=== PATIENT | female | born 1950 | race Caucasian/White ===

== ENCOUNTER 2019-08-19 12:12 | Inpatient (IN) | payer MEDICARE, OTHER, SELFPAY ==
[2019-08-16 14:21] VITALS: BMI 34.7
--- NOTE | 2019-08-16 16:03 | SUR.PREOP ---
Spoke with Raheel Parham PT and stated he would relay to Suhail VERGARA to be here MondayAugust 18 at 0645 to fit pt
[2019-08-19] VITALS (17 sets, daily range): BP systolic 105–164; BP diastolic 56–90; PULSE 69–87; RESP 13–20; TEMP 36.1–37.2; O2SAT 94–100
--- NOTE | 2019-08-19 | SCC_ITS ---
Procedure Done: L4-L5 laminectomy, pedicle-screw annette fixation, transverse process fusion. 24.2 and 4.9 seconds of fluoroscopic guidance, for a cumulative dose of 93.38mGy and 4.57 mGy , was provided to Dr. Dougherty by the radiology department. C-arm images of the lumbar spine were saved for the patient's permanent record. [facility]
--- NOTE | 2019-08-19 | XR_ITS ---
WS: [id number] XR lumbar spine 2-3V* [id number] REASON FOR EXAM: OR PICS FINDINGS: Posterior instrumentation changes are noted L4-L5 with the pedicle screws well positioned. XR/XR lumbar spine 2-3V* [id number] IMPRESSION: Stable posterior instrumentation L4-L5 with pedicle screws.
[2019-08-19] MEDS: gabapentin 300 mg Capsule PO (06:26)
[2019-08-19] MEDS: sodium chloride 0.9% 1,000 ML 30 ML IV (06:27)
[2019-08-19] MEDS: vancomycin 1,000 MG in sodium chloride 0.9% 250 ML 250 MG IV (06:27)
--- NOTE | 2019-08-19 06:44 | ANES.PREANE2 ---
Pre-Anesthetic Assessment Pre-Anesthetic Assessment: Height/Weight: Height 1.63 m Weight 91.626 kg Temp Pulse Resp BP Pulse Ox 97.0 F L 69 18 164/90 97 08/19/19 06:13 08/19/19 06:13 08/19/19 06:13 08/19/19 06:13 08/19/19 06:13 Preop Diagnosis: Lumbar spinal stenosis Proposed Procedure: Operation Date: 08/19/19 07:00 Proposed Procedures p Decompression/Fusion/Fixation 46326 M48.061(Not Applicable) - George Dougherty MD s Lumbar Laminectomy 1 Level L4-L5 Pedical Screw/Transverse process fusion(Not Applicable) - George Dougherty MD s Pedicle Screw Placement And Kenneth Fixation(Not Applicable) - George Dougherty MD Familial anesthetic complications: No trouble with anesthesia Was Beta Natividad taken within 24 hours: N/A Last intake: Intake Last Liquid Date 08/18/19 Last Liquid Time 23:15 Last Solid Date 08/18/19 Last Solid Time 23:15 Social: Social History: No alcohol and No tobacco Exam: Pre-Anes Outpt Exam: alert, oriented x 3, clear to auscultation bilaterally and regular rate & rhythm Airway: Cervical ROM: WNL MP: 3 Additional comments: Upper dentures, cavities, patient states shes unable to take her upper dentures Pulmonary: Pulmonary: None reported CV/HEM: CV/HEM: HTN (white coat syndrome and pain induced) Comments: peripheral edema - according to patieint this is not from heart failure : : None reported Hepatic: Hepatic: None reported GI: GI: None reported Metabolic: Metabolic: Thyroid Musc/skel: Musc/skel: Lower Back Pain Comments: Hip pain (arthritis) Neuropsych: Neuropsych: Neuropathy (lower extremity) Anesthetic Plan: ASA status: 3 Anesthesia: General Risk of > 500 ml blood loss (7ml/kg in children): No Meds/Allergies Current Medications: Current Medications Generic Name Dose Route Start Last Admin Trade Name Freq PRN Reason Stop Dose Admin Vancomycin HCl 1,0 00 mg/ 250 mls @ 250 mls /hr 08/19/19 07:00 08/19/19 06:27 Sodium Chloride IV 08/19/19 07:59 250 mls/hr ONCE ONE Administration Protocol Sodium Chloride 1,000 mls @ 30 ml s/hr 08/19/19 06:00 08/19/19 06:27 Sodium Chloride 0.9% IV 08/20/19 05:59 30 mls/hr .Q24H MONA Administration PFSH Anesthesia PFSH: Social History Smoking and tobacco status: never smoked Alcohol intake: never Lives independently: Yes Household members: spouse Marital status: service: No Current occupational status: retired and disabled History of recent travel: No Data Anesthesia Cardiac Studies: No Data to Display
--- NOTE | 2019-08-19 06:54 | W.PM.OPSUD ---
Surgery/Procedure H&P Update DATE OF PROCEDURE: August 19, 2019 DATE H&P PERFORMED: 08/06/19 H&P UPDATE INFORMATION: I have reviewed H&P completed within last 30 days and H&P to be scanned into chart PREOP DIAGNOSIS: Lumbar spinal stenosis PRIMARY INDICATION FOR PROCEDURE: Back and leg pain PLANNED PROCEDURE: Operation Date: 08/19/19 07:00 Proposed Procedures Decompression/Fusion/Fixation 91800 M48.061(Not Applicable) - George Dougherty MD (Lumbar Laminectomy L4-L5, with Pedical Screw-annette fixation/Transverse process fusion(Not Applicable) - George Dougherty MD
--- NOTE | 2019-08-19 07:08 | PM.OP2 ---
 Brief Operative Note: Date of procedure: 08/19/19 Pre-op diagnosis: Lumbar spinal stenosis, Spondylolisthesis Post-op diagnosis: same Procedure Done: L4-L5 laminectomy, pedicle-screw annette fixation, transverse process fusion. Surgeon: George Dougherty Estimated blood loss (mL): 175 Complications: None. Post-op Plan: PACU, then surgical perez. Condition: stable Disposition: PACU Coding Level of Care Code Acute Digital Marketing Officer for Renetta Villa
--- NOTE | 2019-08-19 08:59 | SUR.OPER ---
CALLED OUT TO WAITING ROOM X 2 TO UPDATE PATIENT FAMILY WITH OUT SUCCESS.
[2019-08-19] MEDS: neomycin-poly-bacitracin oint 28 gm 1 APPLIC TOPICAL (12:05)
--- NOTE | 2019-08-19 12:41 | SUR.PHASEI ---
1230- RECEIVED PATIENT IN PACU FROM OR VIA [facility]. RESP ARE EVEN AND NONLABORED. SIMPLE MASK APPLIED AT 6LPM, SAT 99%. SHE IS AROUSABLE BUT LETHARGIC. DRESSING TO LOWER BACK IS DRY AND INTACT. NO S/S PAIN OR NAUSEA.
[2019-08-19] MEDS: fentaNYL 50 mcg/mL INJ 2mL IVP ×2 (12:50→13:00)
--- NOTE | 2019-08-19 14:02 | XR_ITS ---
WS: [id number] XR lumbar spine 2-3V* [id number] REASON FOR EXAM: postop fusion FINDINGS: Postop changes are noted L4-L5 with posterior instrumentation pedicle screws stabilizing th e anterior listhesis. The posterior instrumentation is well seated there appears to be also at the L4-5 junction previous l aminectomy changes. XR/XR lumbar spine 2-3V* [id number] IMPRESSION: Stable fusion L4-L5. Large laminectomy change on the right L4-L5.
--- NOTE | 2019-08-19 14:10 | SUR.PHASEI ---
1315- [facility] RESP ARE EVEN AND NONLABORED. SAT 97% WITH 2L/NC. SHE IS AROUSABLE BUT DROWSY. DRESSING TO BACK IS DRY AND INTACT. NO S/S PAIN WHEN RESTING. DENIES NAUSEA. TRANSFERRED TO BED WITH SLIDE BOARD AND STAFF X4, SHE TOLERATES WELL. FAMILY IN SECOND FLOOR WAITING ROOM. TRANSITION OF CARE TO JEY DORAN
[2019-08-19] MEDS: cyclobenzaprine 10 mg Tablet PO ×2 (14:12→20:01)
[2019-08-19] MEDS: lactated ringers 1,000 ML 90 ML IV (14:25)
[2019-08-19] MEDS: levofloxacin-dextrose 5 % 750 MG/150 ML PREMIX 150 MG IV (15:13)
[2019-08-19] MEDS: oxyCODONE 5 mg IR Tab/Cap PO ×2 (15:14→19:30)
--- NOTE | 2019-08-19 16:13 | P.PN_ITS ---
Subjective Subjective: Interval history: Reports incisional pain that is better since pain meds. Vitals/I&O/Wt Last Vital Signs Temp 98.4 F 08/19/19 15:49 Pulse 74 08/19/19 15:49 Resp 18 08/19/19 15:49 BP 114/68 08/19/19 15:49 Pulse Ox 100 08/19/19 15:49 08/19/19 08/19/19 08/19/19 06:59 14:59 22:59 Intake Total 250 / 250 Output Total 375 / 375 Balance -125 / -125 Physical Exam Const: COMMON NORMALS: no apparent distress and alert GENERAL APPEARANCE: cooperative, comfortable and well kempt HENMT: COMMON NORMALS: normocephalic and hearing grossly normal bilaterally HEAD & SCALP: normocephalic FACE & SINUS: face symmetric Eye: COMMON NORMALS: conjunctivae normal ALIGNMENT: Yes alignment normal CONJUNCTIVA: Yes conjunctivae normal Neck/C-Spine: COMMON NORMALS: supple and no JVD Resp: COMMON NORMALS: normal respiratory effort EFFORT & INSPECTION: Yes able to speak in complete sentences and No stridor Cardio: COMMON NORMALS: no JVD Back/Pelvis: LUMBAR SPINE/LOWER BACK: Yes straight leg raise negative bilaterally BACK IMAGE (FEMALE): 1. Surgical incision Extremity: COMMON NORMALS: no clubbing, cyanosis or edema Neuro: COMMON NORMALS: moves all extremities SENSORIUM/ORIENTATION: Yes alert SPEECH: speech normal GAIT: Yes normal gait (Toe/heel gait OK.) MOTOR EXAM: strength 5/5 throughout (Bilateral lower extremities.) Psych: COMMON NORMALS: mental status grossly normal, thought process normal and speech normal APPEARANCE: Yes grossly normal and Yes well kempt ATTITUDE: Yes calm and Yes engaged ACTIVITY/MOTOR BEHAVIOR: Yes appropriate eye contact SPEECH: Yes normal speech MOOD & AFFECT: Yes euthymic mood THOUGHT PROCESS: normal thought process ATTENTION/CONCENTRATION: Yes attention grossly intact INSIGHT: insight good JUDGEMENT: judgment good Skin: COMMON NORMALS: no rashes or lesions noted GENERAL SKIN EXAM: no rashes or lesions noted WOUNDS: Yes surgical site (small amount of serosanguineous drainage on dressing) Details: other (Dressing changed at bedside) Urinary Catheter Management^: Stacy: Cath Placed During This Visit: yes Urethral Indwelling: Yes Reason for Continuing Indwelling Catheter: Perioperative Use in Selected Surgeries Urinary Catheter Date of Insertion: 08/19/19 Urinary Catheter Time of Insertion: 07:45 Data Other Xray: I personally reviewed and interpreted this imaging study as follows: (Lumbar: Postop changes of recent L4-L5 laminectomy/fusion/fixation.) A&P Assessment and plan (1) Lumbar spinal stenosis: Doing well after L4-L5 laminectomy/fusion/fixation performed earlier today. She has been up with physical therapy and her lumbar brace. Plan daily Physical Therapy during hospital stay. Up with brace only. Home when discharge goals met. Status: Chronic Code(s): M48.061 - Spinal stenosis, lumbar region without neurogenic claudication (2) Spondylolisthesis at L4-L5 level: Status: Chronic Code(s): M43.16 - Spondylolisthesis, lumbar region (3) Joint instability: Status: Chronic Code(s): M25.30 - Other instability, unspecified joint Attestations Medical Necessity Statement*: Patient is appropriate for inpatient management following lumbar spine fusion surgery. Coding Level of Care Code Acute Concrete Layer for [facility] Fwd Exam Comprehensive Diagnoses Lumbar spinal stenosis M48.061 Spondylolisthesis at L4-L5 level M43.16 Joint instability M25.30
--- NOTE | 2019-08-19 16:36 | P.OP_ITS ---
Operative Report Date of procedure: August 19, 2019 Pre-op Diagnosis: Lumbar spinal stenosis Pre-op Diagnosis: Spondylolisthesis at L4-L5 Post-op diagnosis: same (with Instability of Joint) Procedure Done: L4-L5 laminectomy. L4-L5 pedicle screw/annette fixation. L4-L5 transverse process fusion utilizing augmented, morselized autograft obtained from the laminectomy. Implants: Synthes Matrix screws/rods Pathology: none sent Surgeon: George Dougherty Anesthesia: General Estimated blood loss (mL): 175 IV fluids (mL): 700 Urine output (mL): 200 Complications: None Condition: stable Disposition: PACU Brief History: The patient is a 69-year-old female with symptomatic, radiographically confirmed L4-L5 spondylolisthesis and spinal stenosis. Conservative treatment trials failed to provide lasting symptom relief. After review of the diagnostic and treatment options with the risks/potential benefits/rationale for each, the patient requested to proceed with surgical intervention for lumbar decompression/fusion/fixation at L4-L5. Procedure: After routine preoperative evaluation and informed consent were obtained, the patient was taken to the Operating Room and placed under general endotracheal anesthesia. She was rotated onto the Operating Room table in the prone position. Chest and pelvic bolsters were placed to ensure the abdomen was decompressed. All pressure points were padded. Intraoperative fluoroscopy was utilized for localization purposes. A proposed midline skin incision was marked with a sterile skin marker. The lumbosacral area was then scrubbed with Betadine and prepped with DuraPrep. Sterile towels and drapes were applied, and an Ioban surgical barrier was placed. The proposed incision site was infiltrated with 1% Xylocaine with Epinephrine. A skin incision was made and carried down into the subcutaneous tissues. The lumbodorsal fascia was identified and divided in the midline. A bilateral subperiosteal dissection was carried out, centered on L4 and L5. Deep self-retaining retractors were placed. Intraoperative radiography verified the desired surgical levels. The transverse processes at L4 and L5 were identified and decorticated with the [employer] Jimmie high-speed drill. A laminectomy was then fashioned across the L4-L5 interspace utilizing Leksell and Kerrison rongeurs. Ligamentum flavum was resected at the base of the laminectomy site. Ligament was undercut into the lateral recesses. The medial aspect of the facet joints was resected as necessary to complete the lateral recess decompression. The neuroforamina were identified and enlarged in their medial extent utilizing Kerrison rongeurs. Once the central canal, lateral recesses and neuroforamina were felt to be adequately decompressed, the site was copiously irrigated with sterile saline. Under fluoroscopic guidance, the pedicles at L4 and L5 were identified bilaterally. A bone marrow aspiration needle set was utilized to collect bone marrow from the L4 vertebral body via the right L4 pedicle. This was placed over a 20 ml of PliaFx moldable fibers and allowed to soak until the time of graft placement. Under fluoroscopic guidance, Synthes Matrix screws were placed into the pedicles at L4 and L5 . Bilateral 7 mm x 40 mm were placed at L4 and L5. Good bone purchase was obtained at all screw sites. and radiographic imaging suggested acceptable screw positioning. Synthes Matrix 3-D heads were applied to the screws. Synthes 45 millimeter curved rods were placed within the 3-D heads bilaterally. Locking caps were applied at all screw sites. Tightening was performed once the rods were visually verified to be in good position. Final tightening was performed at each locking cap using the torque wrench. A #7 transverse connector was secured to the rods with the torque wrench. The construct was inspected, manipulated, and found to be secure. The wound was copiously irrigated with sterile saline and antibiotic irrigation. Hemostasis was ensured with electrocautery and thrombin-soaked Gelfoam. The d ura was covered with cottonoids. Morselized autograft was packed between the transverse processes of L4 and L5 bilaterally. This was followed by placement of PliaFx. The bone graft was carefully packed into the desired location, with care taken to avoid bone graft material entering the laminectomy defect. Cottonoids were removed, and a thin layer of Surgi-Cristian hemostatic matrix was placed over the exposed dura. Retractors were removed and infiltration of the muscle and subcutaneous tissues was performed with Exparel. Multiple injection sites and trajectories were utilized bilaterally to maximize the Exparel effects. Wound closure was then performed in multiple layers. The lumbodorsal fascia was closed with 0 Nurolon in a simple interrupted fashion. Superficial fascia and deep dermis were closed as separate layers utilizing 2-0 Vicryl Plus in a simple interrupted fashion. Final skin closure was performed with a combination of simple and vertical mattress 3-0 Nylon interrupted sutures. Antibiotic ointment was placed along the incision line. A sterile dressing was placed. The patient was then rotated onto the Recovery Room cart in the supine position. She was extubated without incident. The patient tolerated the procedure well. All sponge, needle and instrument counts were correct at the completion of the procedure.
[2019-08-19] MEDS: docusate sodium 100 mg Capsule PO (17:26)
[2019-08-20] VITALS (10 sets, daily range): BP systolic 105–127; BP diastolic 46–78; PULSE 79–92; RESP 16–24; TEMP 36.8–37.2; O2SAT 92–100
[2019-08-20] MEDS: oxyCODONE 5 mg IR Tab/Cap PO ×3 (00:49→12:21)
[2019-08-20] MEDS: lactated ringers 1,000 ML 90 ML IV ×2 (00:51→12:21)
[2019-08-20] MEDS: atorvastatin 40 mg Tablet 20 MG PO (08:03)
[2019-08-20] MEDS: docusate sodium 100 mg Capsule PO ×2 (08:03→17:01)
[2019-08-20] MEDS: FUROsemide 20 mg Tablet PO (08:04)
[2019-08-20] MEDS: levothyroxine 112 mcg Tablet PO (08:04)
[2019-08-20] MEDS: hydroCHLOROthiazide 25 mg Tablet PO (08:05)
[2019-08-20] MEDS: cyclobenzaprine 10 mg Tablet PO ×3 (08:05→20:28)
[2019-08-20] MEDS: timolol 0.5% Op Soln 5 mL Btl 1 DROP EYE-BOTH ×2 (08:07→17:04)
[2019-08-20] MEDS: brimonidine 0.2% Op Soln 5 mL Btl 1 DROP EYE-BOTH ×2 (08:07→17:03)
--- NOTE | 2019-08-20 12:30 | CT_ITS ---
WS: [id number] CT of the lumbar spine, additional two-dimensional coronal and sagittal imaging was obtained. 0 Clinical Data: postop pain Comparison: CT lumbar spine, 06/06/2019. DLP: 2289.[address] scans at [facility] use at least one of these dose optimization techniques: automat ed exposure control; mA and/or kV adjustment per patient size (includes targeted exams where dose is matched to clinical indication); or iterative reconstruction. Findings: There is air in the spinal canal, in the subcutaneous tissue posterior to the L4 vertebral level at the level of the spinous processes and in the posterior subcutaneous tissue of the back most ly at the L1 level. The patient may have had a recent procedure to account for this air. There is a f usion of the L4 and L5 vertebral bodies with pedicle screws and connecting rods. There is also a bony fusion between the transverse processes bilaterally of L4 and L5. No compression fractures are seen. There is a subluxation of L4 on L5 measuring 0.4 cm unchanged. There are L5 and S1 laminectomies. De generative disc disease at L4-L5 and L5-S1 is noted. T12-L1: No canal stenosis, disc bulge or foraminal narrowing is seen. L1-L2: No canal stenosis, disc bulge or foraminal narrowing is seen. L2-L3: There is a central bulging disc causing canal stenosis along with facet joint arthritis causin g foraminal narrowing. L3-L4: There is a central bulging disc along with facet joint arthritis causing canal and foraminal s tenosis. L4-L5: No central disc bulge is seen but the posterior superior aspect of the L5 vertebral body narro ws the spinal canal minimally. There is facet joint arthritis. Laminectomy allows for normal central canal diameter. L5-S1: There is disc degeneration and minimal posterior bulging along with facet joint arthritis with a laminectomy which allows for normal canal diameter. CT/CT lumbar spine wo con* [id number] Impression: 1. Posterior lumbar fusion at L5-S1 with L5 and S1 laminectomies. 2. Subluxation of L4 and L5 unchanged. 3. Minimal central disc bulges at L2-L3 and L3-L4. 4. Minimal air in the lumbar subarachnoid space plus air in the posterior subcu taneous tissue of the back which may be from a recent procedure.
[2019-08-20] MEDS: ketorolac 30 mg/mL INJ 15 MG IVP ×2 (12:34→18:20)
--- NOTE | 2019-08-20 15:46 | PC.CHAP ---
Pastoral Care Encounter/Spiritual Assessment Type of Contact [] Declined motor setter visit [] Patient/Family/Request visit [] Outpatient visit [] Follow-up visit [] Physician referral [] Code/Alert [] Routine visit [] Staff referral [] Actively dying [] Patient sleeping [] Family support [] [] Out of room [] Palliative care [] [] Receiving care in room [] Pre-surgical visit [] Trauma [] Long length of stay [] ICU visit [] Other: Relational/Emotional Strength [] Patient feels connected with others/family/visitors/staff [] Distress [] Loneliness/isolation [] Abandonment Spirituality of Patient [] Person of Pam [] Attends Sikh of their Pam [] Believes in Prayer [] Reads Bible or Denominational materials [] There are Spiritual issues to be addressed Commercial Floor Covering Installer Interventions [] Prayer [] Active listening [] Non-anxious presence [] Spiritual/emotional support [] Crisis/trauma care [] Spiritual counseling [] Bereavement support [] Provided bereavement packet [] Provided Bible/devotional materials [] Provided toy/stuffed animal, coloring book to patient or family member [] Provided Communion [] Anointing/[place] [] Salvation [] Completed spiritual assessment [] Other: Impact on Illness or Injury [] Angry [] Fearful [] Anxious [] Often cries [] Exhaustion [] Unable to work [] Unable to attend shinto [] Unable to walk/stand [] Unable to read [] Unable to drive [] Unable to eat/drink [] Unable to sleep [] Unable to be with family [] Patient intubated [] Other: Summary Time spent with patient Pastoral Care Encounter/Spiritual Assessment Type of Contact [] Declined motor setter visit [] Patient/Family/Request visit [] Outpatient visit [] Follow-up visit [] Physician referral [] Code/Alert [x] Routine visit [] Staff referral [] Actively dying [] Patient sleeping [] Family support [] [x] Out of room [] Palliative care [] [] Receiving care in room [] Pre-surgical visit [] Trauma [] Long length of stay [] ICU visit [] Other: Relational/Emotional Strength [] Patient feels connected with others/family/visitors/staff [] Distress [] Loneliness/isolation [] Abandonment Spirituality of Patient [] Person of Pam [] Attends Sikh of their Pam [] Believes in Prayer [] Reads Bible or Denominational materials [] There are Spiritual issues to be addressed Commercial Floor Covering Installer Interventions [] Prayer [] Active listening [] Non-anxious presence [] Spiritual/emotional support [] Crisis/trauma care [] Spiritual counseling [] Bereavement support [] Provided bereavement packet [] Provided Bible/devotional materials [] Provided toy/stuffed animal, coloring book to patient or family member [] Provided Communion [] Anointing/[place] [] Salvation [] Completed spiritual assessment [] Other: Impact on Illness or Injury [] Angry [] Fearful [] Anxious [] Often cries [] Exhaustion [] Unable to work [] Unable to attend shinto [] Unable to walk/stand [] Unable to read [] Unable to drive [] Unable to eat/drink [] Unable to sleep [] Unable to be with family [] Patient intubated [] Other: Summary Commercial Floor Covering Installer request follow up visit by on coming motor setter. Pt. out for multiple test. Time spent with patient
[2019-08-20] MEDS: oxyCODONE 10 mg ER (12 HR) Tablet PO (17:01)
--- NOTE | 2019-08-20 20:25 | P.PN_ITS ---
Subjective Subjective: Interval history: Complains of low back and bilateral knee pain. Vitals/I&O/Wt Last Vital Signs Temp 98.9 F 08/20/19 19:53 Pulse 82 08/20/19 19:53 Resp 24 H 08/20/19 19:53 BP 113/65 08/20/19 19:53 Pulse Ox 92 08/20/19 19:53 08/20/19 08/20/19 08/20/19 06:59 14:59 22:59 Intake Total 939 / 1869 1240 / 1240 Output Total 600 / 1175 1000 / 1000 Balance 339 / 694 240 / 240 Physical Exam Const: COMMON NORMALS: no apparent distress GENERAL APPEARANCE: cooperative Neck/C-Spine: COMMON NORMALS: supple and no JVD Resp: COMMON NORMALS: normal respiratory effort EFFORT & INSPECTION: Yes able to speak in complete sentences, No tachypneic and No stridor Cardio: COMMON NORMALS: no JVD Back/Pelvis: BACK IMAGE (FEMALE): 1. surgical incision Extremity: COMMON NORMALS: no clubbing, cyanosis or edema Neuro: COMMON NORMALS: moves all extremities and no focal motor deficits (lowe r extremities) Psych: ATTITUDE: Yes engaged ACTIVITY/MOTOR BEHAVIOR: Yes appropriate eye contact ATTENTION/CONCENTRATION: Yes attention grossly intact Skin: WOUNDS: Yes surgical site (dressing with scant serosanguineous drainage.) Details: other (Incision without erythema or active drainage) Urinary Catheter Management^: Stacy: Cath Placed During This Visit: yes Urethral Indwelling: Yes Reason for Continuing Indwelling Catheter: Required Immobilization for Trauma or Surgery or Anesthesia Urinary Catheter Date of Insertion: 08/19/19 Urinary Catheter Time of Insertion: 07:[address]: My impression: Recent postop changes of L4/L5 laminectomies, with L4-L5 pedicle screw-annette fixation and transverse process fusion. L4-L5 spondylolisthesis. Radiologist's impression: 1. Posterior lumbar fusion at L5-S1 with L5 and S1 laminectomies. 2. Subluxation of L4 and L5 unchanged. 3. Minimal central disc bulges at L2-L3 and L3-L4. 4. Minimal air in the lumbar subarachnoid space plus air in the posterior subcutaneous tissue of the back which may be from a recent procedure. A&P Assessment and plan (1) Lumbar spinal stenosis: Patient experienced pain exacerbation this AM that appeared at least parti ally related to a long overnight interval without pain medication. She complained of some lower extremity symptoms this AM, and a lumbar CT was obtained. She reported improvement with medication adjustments, and localized her primary lower extremity symptoms to the knees. Plan to continue with combination medication management for pain, and daily Physical Therapy. Anticipate increased activity, up with brace, and removal of Stacy catheter in AM. Home when discharge goals met. Status: Chronic Code(s): M48.061 - Spinal stenosis, lumbar region without neurogenic claudication (2) Spondylolisthesis at L4-L5 level: Status: Chronic Code(s): M43.16 - Spondylolisthesis, lumbar region Attestations Medical Necessity Statement*: Patient is appropriate for inpatient management after lumbar fusion surgery. Coding Level of Care Code Acute Mobile Service Rv Technician for [facility] Fwd Exam Comprehensive Diagnoses Lumbar spinal stenosis M48.061 Spondylolisthesis at L4-L5 level M43.16
[2019-08-21] VITALS (7 sets, daily range): BP systolic 100–148; BP diastolic 58–75; PULSE 65–96; RESP 16–20; TEMP 36.9–37.9; O2SAT 92–98
[2019-08-21] MEDS: ketorolac 30 mg/mL INJ 15 MG IVP ×3 (00:01→12:18)
[2019-08-21] MEDS: lactated ringers 1,000 ML 90 ML IV ×2 (00:04→22:29)
[2019-08-21] MEDS: oxyCODONE 5 mg IR Tab/Cap PO ×2 (02:41→16:35)
[2019-08-21] MEDS: oxyCODONE 10 mg ER (12 HR) Tablet PO ×3 (08:24→17:38)
[2019-08-21] MEDS: levothyroxine 112 mcg Tablet PO (08:24)
[2019-08-21] MEDS: atorvastatin 40 mg Tablet 20 MG PO (08:24)
[2019-08-21] MEDS: FUROsemide 20 mg Tablet PO (08:24)
[2019-08-21] MEDS: docusate sodium 100 mg Capsule PO ×2 (08:25→17:38)
[2019-08-21] MEDS: cyclobenzaprine 10 mg Tablet PO ×3 (08:25→20:42)
--- NOTE | 2019-08-21 12:14 | P.PN_ITS ---
Subjective Subjective: Interval history: I am doing better today. Medications: Reviewed: Yes Vitals/I&O/Wt Last Vital Signs Temp 98.7 F 08/21/19 11:20 Pulse 96 08/21/19 11:20 Resp 18 08/21/19 11:20 BP 104/61 08/21/19 11:20 Pulse Ox 95 08/21/19 11:20 08/20/19 08/21/19 08/21/19 22:59 06:59 14:59 Intake Total 250 / 1490 1175 / 2665 240 / 240 Output Total 1400 / 2400 Balance 250 / 490 -225 / 265 240 / 240 Physical Exam Const: COMMON NORMALS: no apparent distress and alert GENERAL APPEARANCE: cooperative and comfortable ORIENTATION/CONSCIOUSNESS: Yes awake HENMT: TEETH & GINGIVA: Yes dentures Neck/C-Spine: GENERAL: Yes trachea midline and No JVD Resp: COMMON NORMALS: normal respiratory effort EFFORT & INSPECTION: Yes able to speak in complete sentences, No tachypneic and No respiratory distress Extremity: COMMON NORMALS: no pedal edema Neuro: COMMON NORMALS: moves all extremities SENSORIUM/ORIENTATION: Yes alert SPEECH: speech normal MOTOR EXAM: strength 5/5 throughout (bilateral lower extremities) Psych: COMMON NORMALS: mental status grossly normal, thought process normal and speech normal APPEARANCE: Yes grossly normal ATTITUDE: Yes calm and Yes engaged ACTIVITY/MOTOR BEHAVIOR: Yes appropriate eye contact SPEECH: Yes normal speech MOOD & AFFECT: Yes euthymic mood THOUGHT PROCESS: normal thought process INSIGHT: insight good JUDGEMENT: judgment good Skin: WOUNDS: Yes surgical site (Dressing C/D/I) Details: other (incision wit hout erythema or drainage) Urinary Catheter Management^: Stacy: Cath Placed During This Visit: yes Urethral Indwelling: Yes Reason for Continuing Indwelling Catheter: Required Immobilization for Trauma or Surgery or Anesthesia Urinary Catheter Date of Insertion: 08/19/19 Urinary Catheter Time of Insertion: 07:45 A&P Assessment and plan (1) Lumbar spinal stenosis: Slow, daily improvement is being seen. Morning pain control remains worse than afternoon, but the BID OXYContin dosing does seem to be better than PRN meds alone. Plan Stacy catheter removal today, and progression of OOB in chair/ambulation in preparation for discharge home tomorrow. Status: Chronic Code(s): M48.061 - Spinal stenosis, lumbar region without neurogenic claudication (2) Spondylolisthesis at L4-L5 level: Status: Chronic Code(s): M43.16 - Spondylolisthesis, lumbar region Attestations Medical Necessity Statement*: Patient is appropriate for inpatient management after a lumbar spine fusion/fixation surgery. Coding Level of Care Code Acute Quality Process Engineer for [facility] Fwd Exam Comprehensive Diagnoses Lumbar spinal stenosis M48.061 Spondylolisthesis at L4-L5 level M43.16
--- NOTE | 2019-08-21 13:55 | PC.NURSE ---
guevara removed pt tolerated it well 10mll ns in balloon
[2019-08-21] MEDS: timolol 0.5% Op Soln 5 mL Btl 1 DROP EYE-BOTH (17:38)
[2019-08-21] MEDS: brimonidine 0.2% Op Soln 5 mL Btl 1 DROP EYE-BOTH (17:40)
[2019-08-22] VITALS (10 sets, daily range): BP systolic 110–163; BP diastolic 46–81; PULSE 60–84; RESP 18–20; TEMP 36.7–37.1; O2SAT 93–99
[2019-08-22] MEDS: oxyCODONE 5 mg IR Tab/Cap PO ×3 (01:18→13:21)
[2019-08-22] MEDS: magnesium hydroxide 30 mL UDC PO ×2 (07:27→13:20)
[2019-08-22] MEDS: atorvastatin 40 mg Tablet 20 MG PO (09:53)
[2019-08-22] MEDS: FUROsemide 20 mg Tablet PO (09:53)
[2019-08-22] MEDS: docusate sodium 100 mg Capsule PO ×2 (09:53→17:14)
[2019-08-22] MEDS: cyclobenzaprine 10 mg Tablet PO ×3 (09:53→21:48)
[2019-08-22] MEDS: levothyroxine 112 mcg Tablet PO (09:54)
[2019-08-22] MEDS: oxyCODONE 10 mg ER (12 HR) Tablet PO ×2 (09:54→17:14)
--- NOTE | 2019-08-22 10:19 | PC.NURSE ---
st nina Gonzales rn did the st cath
--- NOTE | 2019-08-22 12:34 | PC.SOCIAL ---
Pg 2 IMM Explained to pt Pg 2 IMM & provided pt a copy. No questions voiced. Signed, dated, timed, & placed in pt's chart.
[2019-08-22] MEDS: timolol 0.5% Op Soln 5 mL Btl 1 DROP EYE-BOTH ×2 (13:27→17:14)
[2019-08-22] MEDS: brimonidine 0.2% Op Soln 5 mL Btl 1 DROP EYE-BOTH ×2 (13:27→17:14)
--- NOTE | 2019-08-22 15:46 | PM.PN ---
Subjective Subjective: Interval history: Doing better today. Primary complaints of no postop BM, and difficulty voiding. Medications: Reviewed: Yes Vitals/I&O/Wt Last Vital Signs Temp 98.8 F 08/22/19 11:52 Pulse 82 08/22/19 11:52 Resp 18 08/22/19 13:21 BP 150/81 08/22/19 11:52 Pulse Ox 95 08/22/19 11:52 08/22/19 08/22/19 08/22/19 06:59 14:59 22:59 Intake Total 240 / 2560 240 / 240 Balance 240 / 2160 240 / 240 Physical Exam Const: COMMON NORMALS: no apparent distress GENERAL APPEARANCE: cooperative and comfortable NUTRITIONAL APPEARANCE: obese (mild) Neck/C-Spine: COMMON NORMALS: supple and no JVD Resp: COMMON NORMALS: normal respiratory effort EFFORT & INSPECTION: Yes able to speak in complete sentences, No tachypneic, No respiratory distress and No stridor Cardio: COMMON NORMALS: no JVD Back/Pelvis: BACK IMAGE (FEMALE): 1. Surgical incision Extremity: COMMON NORMALS: no clubbing, cyanosis or edema Neuro: COMMON NORMALS: moves all extremities GAIT: Yes assistive device used walker (back brace (LSO)) and Yes other MOTOR EXAM: strength 5/5 throughout (bilateral lower extremities) Psych: COMMON NORMALS: mental status grossly normal, thought process normal and speech normal APPEARANCE: Yes grossly normal ATTITUDE: Yes calm and Yes engaged ACTIVITY/MOTOR BEHAVIOR: Yes appropriate eye contact SPEECH: Yes normal speech MOOD & AFFECT: Yes euthymic mood THOUGHT PROCESS: normal thought process THOUGHT CONTENT: Yes normal thought content Skin: WOUNDS: Yes surgical site (Surgical site dressing clean/dry/intact. Incision without erythema or drainage.) Urinary Catheter Management^: Stacy: Cath Placed During This Visit: yes Reason for Continuing Indwelling Catheter: Required Immobilization for Trauma or Surgery or Anesthesia Urinary Catheter Date of Insertion: 08/19/19 Urinary Catheter Time of Insertion: 07:45 A&P Assessment and plan (1) Lumbar spinal stenosis: Patient continues with slow, daily progress. Her pain issues are much improved today. Ambulation and transfers are much improved since POD#1. She is complaining of constipation that has not resolved with milk of magnesia. She continues with difficulty with urination since catheter removal. Continue brace wear at all times when not in bed. Continue daily physical therapy. Add Dulcolax suppository PRN no BM. Continue bladder scan and PRN straight cath for now. Reevaluate for discharge home tomorrow. Status: Chronic Code(s): M48.061 - Spinal stenosis, lumbar region without neurogenic claudication (2) Spondylolisthesis at L4-L5 level: Status: Chronic Code(s): M43.16 - Spondylolisthesis, lumbar region (3) Joint instability: Status: Chronic Code(s): M25.30 - Other instability, unspecified joint Attestations Medical Necessity Statement*: Patient is appropriate for inpatient management after lumbar fusion surgery. Coding Level of Care Code Acute Crisis Specialist for g Fwd Exam Comprehensive Diagnoses Lumbar spinal stenosis M48.061 Spondylolisthesis at L4-L5 level M43.16 Joint instability M25.30
[2019-08-22] MEDS: lactated ringers 1,000 ML 90 ML IV (16:27)
[2019-08-22] MEDS: bisacodyl 10 mg Supp PR (17:14)
--- NOTE | 2019-08-22 21:58 | PC.NURSE ---
pt up to cammode with small liq stool, given prune juice at her req instead of mom.
--- NOTE | 2019-08-22 22:21 | PC.NURSE ---
bladder scan with 107 ml noted. No distention noted no complaints by pt reporting needing to void, states just a lot of gas and wanting to have bm.
--- NOTE | 2019-08-22 23:05 | PC.NURSE ---
pt setting off alarm wanting to sit on side of bed, told pt that was fine but had to wear back brace said she would lay back down.
[2019-08-23] VITALS: BP 125/65; PULSE 75; RESP 18; TEMP 36.7; O2SAT 95
--- NOTE | 2019-08-23 00:41 | PC.NURSE ---
bladder scan with 300 ml noted, straight cath using sterile technique with 350 light boris urine. Pt tolerated well.
[2019-08-23 00:49] VITALS: RESP 18
[2019-08-23] MEDS: oxyCODONE 5 mg IR Tab/Cap PO (00:49)
[2019-08-23] MEDS: magnesium hydroxide 30 mL UDC PO (03:28)
[2019-08-23] MEDS: lactated ringers 1,000 ML 90 ML IV (03:28)
--- NOTE | 2019-08-23 03:52 | PC.NURSE ---
pt up to cammode with liq stool 150 ml
[2019-08-23 04:00] VITALS: BP 160/84; PULSE 79; RESP 17; TEMP 36.9; O2SAT 93
--- NOTE | 2019-08-23 04:27 | PC.NURSE ---
pt ready to get out of bed, encouraged pt to always use back brace when sitting or getting oob. Brace placed on pt. Up to chair with alarm in place.
--- NOTE | 2019-08-23 06:19 | PC.NURSE ---
pt bladder scan with 360 ml straight cath with 475ml yellow output.
[2019-08-23 08:00] VITALS: BP 126/62; PULSE 91; RESP 16; TEMP 36.7; O2SAT 98
[2019-08-23] MEDS: FUROsemide 20 mg Tablet PO (08:57)
[2019-08-23] MEDS: cyclobenzaprine 10 mg Tablet PO (08:57)
[2019-08-23] MEDS: levothyroxine 112 mcg Tablet PO (08:57)
[2019-08-23] MEDS: atorvastatin 40 mg Tablet 20 MG PO (08:58)
[2019-08-23] MEDS: docusate sodium 100 mg Capsule PO (08:58)
[2019-08-23] MEDS: HYDROcodone-acetaminophen 10-325 mg Tablet PO (09:00)
[2019-08-23] MEDS: timolol 0.5% Op Soln 5 mL Btl 1 DROP EYE-BOTH (09:02)
[2019-08-23] MEDS: brimonidine 0.2% Op Soln 5 mL Btl 1 DROP EYE-BOTH (09:03)
[2019-08-23 12:00] VITALS: BP 131/80; PULSE 70; RESP 16; TEMP 36.7; O2SAT 99
--- NOTE | 2019-08-23 13:06 | P.DS_ITS ---
Discharge Providers Date of Admission: 08/19/19 12:20 Date of Discharge: August 23, 2019 Attending Provider at Admission: Yina De La Garza MD Attending Provider at Discharge: George Dougherty MD Primary Care Provider: John Wang DO Diagnoses at Discharge Discharge Diagnosis (1) Lumbar spinal stenosis: Status: Chronic (2) Spondylolisthesis at L4-L5 level: Status: Chronic (3) Joint instability: Status: Chronic Reason for Visit Reason for Visit: Reason For Visit: Lumbar Spinal Stenosis Brief History: The patient is a 69-year-old female with symptomatic, radiographically confirmed L4-L5 spondylolisthesis and spinal stenosis. Conservative treatment trials failed to provide lasting symptom relief. After review of the diagnostic and treatment options with the risks/potential benefits/rationale for each, the patient requested to proceed with surgical intervention for lumbar decompression/fusion/fixation at L4-L5. Hospital Course Hospital Course: Patient underwent L4-L5 laminectomy, pedicle screw-annette fi xation, and transverse process fusion on 08/19/2019. She tolerated the procedure well. She developed bilateral lower extremity symptoms within the first 24 hours after surgery, and a lumbar CT was performed. She underwent daily Physical Therapy, and made daily progress toward discharge goals. Her Stacy catheter was removed on POD #2. She experienced postop constipation and urinary retention. She was ambulatory, tolerating diet, and able to void/have a bowel movement prior to discharge home on POD #4. Home health services were arranged at discharge. Physical Exam Const: COMMON NORMALS: no apparent distress and alert GENERAL APPEARANCE: cooperative and comfortable Neck/C-Spine: COMMON NORMALS: supple, no meningeal signs and no JVD Resp: COMMON NORMALS: normal respiratory effort EFFORT & INSPECTION: Yes able to speak in complete sentences, No tachypneic and No respiratory distress Cardio: COMMON NORMALS: no JVD Back/Pelvis: BACK IMAGE (FEMALE): 1. surgical incision Extremity: COMMON NORMALS: no clubbing, cyanosis or edema Neuro: SENSORIUM/ORIENTATION: Yes alert MENINGEAL SIGNS: Yes no meningeal signs SPEECH: speech normal GAIT: Yes other (Ambulatory with brace and walker) MOTOR EXAM: strength 5/5 throughout (Bilateral lower extremities) Psych: COMMON NORMALS: mental status grossly normal and thought process normal ATTITUDE: Yes calm and Yes engaged ACTIVITY/MOTOR BEHAVIOR: Yes appropriate eye contact MOOD & AFFECT: Yes euthymic mood THOUGHT PROCESS: normal thought process ATTENTION/CONCENTRATION: Yes attention grossly intact Skin: WOUNDS: Yes surgical site (Lumbar surgical site dressing clean/dry/intact.) Urinary Catheter Management^: Stacy: Cath Placed During This Visit: yes Reason for Continuing Indwelling Catheter: Required Immobilization for Trauma or Surgery or Anesthesia Urinary Catheter Date of Insertion: 08/19/19 Urinary Catheter Time of Insertion: 07:45 Discharge Data Data Completed and Pending: Completed Studies During Hospitalization Category Date Time Status CT lumbar spine w o con* [id number] Routi ne Cat Scan 08/20/19 12:30 Completed XR lumbar spine 2 -3V* [id number] Routine Exams 08/19/19 Completed XR lumbar spine 2 -3V* [id number] Routine Exams 08/19/19 14:02 Completed Imaging^: Other Xray: Radiologist's impression: IMPRESSION: Stable posterior instrumentation L4-L5 with pedicle screws. Other CT: Radiologist's impression: Impression: 1. Posterior lumbar fusion at L5-S1 with L5 and S1 laminectomies. 2. Subluxation of L4 and L5 unchanged. 3. Minimal central disc bulges at L2-L3 and L3-L4. 4. Minimal air in the lumbar subarachnoid space plus air in the posterior subcutaneous tissue of the back which may be from a recent procedure. Vitals: Last Vital Signs Temp 98.0 F 08/23/19 14:00 Pulse 70 08/23/19 14:00 Resp 16 08/23/19 14:00 BP 131/80 08/23/19 14:00 Pulse Ox 99 08/23/19 14:00 Discharge Plan Discharge Patient Disposition: Home Health Service Condition: Stable Prescriptions: New hydrocodone-acetaminophen 10-325 mg Tablet 1 - 2 tab PO Q4H MDD 5 tabs PRN (Reason: Moderate To Severe Pain) Qty: 30 RF: 0 Continued cyclobenzaprine 10 mg tablet 10 mg PO TID RF: 0 naproxen 500 mg tablet 500 mg PO BID RF: 0 atorvastatin 20 mg tablet 20 mg PO DAILY RF: 0 levothyroxine [Synthroid] 112 mcg tablet 112 mcg PO DAILY RF: 0 hydrochlorothiazide 25 mg tablet 25 mg PO DAILY PRN (Reason: Edema) RF: 0 furosemide 20 mg tablet 20 mg PO DAILY RF: 0 sennosides-docusate sodium [Colace 2-In-1] 8.6-50 mg tablet 1 tab-cap PO DAILY RF: 0 brimonidine-timolol 0.2-0.5 % Drops 1 drp OPHTHALMIC (EYE) Q12H RF: 0 Held tramadol 50 mg tablet 100 mg PO Q8H RF: 0 Hold Instructions: Resume on 08/30/19. Hold while taking Arnold (hydrocodone). Discharge Orders: Discharge Order (Routine); Ordered 08/23/19 Ordered By: George Dougherty Referrals: [facility] [Outside] (Your information has been sent to [facility] [place] (formerly [facility] [place] to see if they can provide home health services for you. If you do not hear from them in 1-2 days, please call them at the number provided. You may also call [facility] [place] if you have any questions or concerns at ext. [phone].) George Dougherty MD [Physician] - 09/06/19 9:00 am (Please come to [facility] [place] to have an AP/lateral l-spine x-rays done prior to visit.) Discharge Diet: Regular Discharge Activity: Limit activity as instructed and As per PT/OT instructions Patient Instructions: Hydrocodone/Acetaminophen (By mouth), Rotator Cuff Tear Repair (DC), Lumbar Disc Herniation (DC), How to Catheterize Yourself (Woman) (GEN), Lumbar Spinal Stenosis (DC) Activity Restrictions/Additional Instructions: Activity - Lumbar fusion: Wear lumbar brace when up. - No driving until office followup visit - No lifting/pushing/pulling over 10 pounds - Avoid twisting or bending - Walking is encouraged - Home exercise per physical therapist - You may engage in sexual intercourse at any time as long as it is comfortable for you - Check with your doctor before returning to work. Notify your doctor if you develop: - temperature of 101.5 degrees F. or higher - redness or swelling of the incision - Foul drainage - increasing pain - increasing numbness or tingling in the arms or legs - New or increasing problems with vision, balance, memory, speaking, nausea or vomiting Hygiene: - Showering is okay - No tub baths or soaking Other: Remove outer bandage 3 days after surgery. If you have paper strips, leave in place until they fall off on their own. If you have stitches, keep your incision dry until the stitches are removed. Your doctor's office is available to answer any questions from 7 AM to 5:00 PM, Monday through at [phone]. After hours, go to the emergency room at [facility] or call 911 for assistance. Discharge Date/Time: 08/23/19 14:26 Discharge Attestations Time Spent in Discharge Care*: other (postop global) Quality Metrics Clinical Quality Measures During this hospital stay, did patient experience: None Coding Level of Care Code Acute Manufacturing Executive for [facility] Fwd Exam Comprehensive Diagnoses Lumbar spinal stenosis M48.061 Spondylolisthesis at L4-L5 level M43.16 Joint instability M25.30 Comment postop global
[2019-08-23 14:00] VITALS: BP 131/80; PULSE 70; RESP 16; TEMP 36.7; O2SAT 99
== END 2019-08-23 14:26 | disposition home health service (06) | DRG 460 ==
LOC: MEDSURG 12:13
PROVIDERS: Admitting Provider Internal Medicine Cardiovascular Disease; Family Provider Internal Medicine; PCP Internal Medicine; Visit Provider Specialist
PROC: 0SG00AJ Fusion of Lumbar Vertebral Joint with Interbody Fusion Device, Posterior Approach, Anterior Column, Open Approach (ICD-10-PCS; CPT 22630; principal; 2019-08-19 07:00)
PROC: 0SG00AJ Fusion of Lumbar Vertebral Joint with Interbody Fusion Device, Posterior Approach, Anterior Column, Open Approach (ICD-10-PCS; 2019-08-19 07:00)
PROC: 0SG00AJ Fusion of Lumbar Vertebral Joint with Interbody Fusion Device, Posterior Approach, Anterior Column, Open Approach (ICD-10-PCS; CPT 22840; 2019-08-19 07:00)
DX: M43.16 Spondylolisthesis, lumbar region (principal); M48.061 Spinal stenosis, lumbar region without neurogenic claudication; I10 Essential (primary) hypertension; M25.30 Other instability, unspecified joint; Z79.899 Other long term (current) drug therapy
CPT/HCPCS: 12345; 51702; 51798; 72100; 72131; 76000; 96365; 96375; 97116; 97140; 97162; 97530; C1713; C9290; G0378; J0131; J1100; J1885; J1956; J2001; J2370; J2405; J2704; J3010; J3370; J3490; J7030; J7050; L0637

== ENCOUNTER 2019-09-05 09:28 | Outpatient (CLI) | payer MEDICARE, OTHER, SELFPAY ==
--- NOTE | 2019-09-05 09:35 | XR_ITS ---
WS: [id number] XR lumbar spine 2-3V* [id number] REASON FOR EXAM: Postop FINDINGS: Prominent laminectomy L5-S1. Posterior instrumentation L4-L5. Appears to be satisfactory position. There is bone graft is also identified at L4-5. The remaining lumbar spine was normal. XR/XR lumbar spine 2-3V* [id number] IMPRESSION: Bone grafts and posterior instrumentation L4-L5. The pedicle screw at the L4 level appears to be migrated into the disc area bet ween L3 and 4.
== END 2019-09-05 09:29 | disposition home or self-care (01) ==
LOC: RAD 09:33
PROVIDERS: Family Provider Internal Medicine; PCP Internal Medicine; Visit Provider Specialist
DX: Z98.1 Arthrodesis status (principal)
CPT/HCPCS: 72100

== ENCOUNTER 2019-10-09 11:11 | Outpatient (CLI) | payer MEDICARE, OTHER, SELFPAY ==
--- NOTE | 2019-10-09 11:17 | XR_ITS ---
WS: [id number] LUMBAR SPINE: 3 VIEWS TECHNIQUE: AP, lateral and L5-S1 spot. HISTORY: s/p lumbar fusion COMPARISON: 09/05/2019 Posterior lumbar fusion at L4-5. Anterolisthesis of L4 by 8 mm. Anterolisthesis appears slightly more progressed as compared to 08/20/2019. This could be positional. No lucency around the hardware or frac ture. Moderate disc space narrowing at L4-5 and severe at L5-S1. Paravertebral bone grafting at the L4-5 le igor. Mild bilateral SI joint narrowing and sclerosis. XR/XR lumbar spine 2-3V* [id number] IMPRESSION: 1. Prior posterior lumbar fusion at L4-5 with no complication. 2. L4 anterolisthesis by 8 mm. Slightly more anterolisthesis as compared to th e recent CT of 08/20/2019 but this could be projectional. 3. Advanced degenerative disc disease at L4-5 and L5-S1.
== END 2019-10-09 11:12 | disposition home or self-care (01) ==
LOC: RADWPI 11:15
PROVIDERS: Family Provider Internal Medicine; PCP Internal Medicine; Visit Provider Licensed Practical Nurse
DX: Z98.1 Arthrodesis status (principal); M43.26 Fusion of spine, lumbar region; M51.37 Other intervertebral disc degeneration, lumbosacral region
CPT/HCPCS: 72100

== ENCOUNTER 2019-11-19 13:23 | Outpatient (CLI) | payer MEDICARE, OTHER, SELFPAY ==
--- NOTE | 2019-11-19 14:00 | CT_ITS ---
WS: [id number] CT LUMBAR SPINE, noncontrast. HISTORY: s/p lumbar fusion TECHNIQUE: Contiguous 2.5 mm axial imaging are performed. Sagittal and coronal reformats are submitte d and reviewed. All CT scans at [facility] use at least one of these dose optimization te chniques: automated exposure control; mA and/or kV adjustment per patient size (includes targeted exa ms where dose is matched to clinical indication); or iterative reconstruction. IV contrast: None DLP: 2080.48 mGycm COMPARISON: 08/20/2019 Status post posterior lumbar fusion at L4-5. L4 anterolisthesis by 5.8 mm. Severe disc space narrowin g at L4-5 with vacuum disc phenomenon. Additional severe disc space narrowing and desiccation at L5-S 1. No fractures. Large posterior laminectomy defects at L4 and L5. Incompletely fused bone grafting b ilaterally. L1-2: Mild osteophytic ridging with no stenosis. L2-3: Mild annular disc bulging slightly asymmetric to the LEFT. No stenosis. L3-4: Mild broad-based disc bulging. No significant stenosis. There is significant artifact at this l evel from the hardware. L4-5: Large posterior laminectomy defect with decompression of the stenosis. No stenosis is evident. L5-S1: No central stenosis. Large posterior laminectomy defects. Mild osteophytic ridging with osteop hytes encroaching into the foramen with only mild stenosis. Scattered calcification within the aorta. CT/CT lumbar spine wo con* [id number] IMPRESSION: 1. Status post lumbar fusion at L4-5 with large posterior laminectomy defects. 2. Severe degenerative disc disease at L4-5 and L5-S1. 3. Stable L4 anterolisthesis by 5.8 mm.
== END 2019-11-19 13:24 | disposition home or self-care (01) ==
LOC: RADWPI 13:27
PROVIDERS: Family Provider Internal Medicine; PCP Internal Medicine; Visit Provider Licensed Practical Nurse
DX: Z98.1 Arthrodesis status (principal); M51.37 Other intervertebral disc degeneration, lumbosacral region; M43.26 Fusion of spine, lumbar region
CPT/HCPCS: 72131

== ENCOUNTER 2020-01-21 09:39 | Outpatient (CLI) | payer MEDICARE, OTHER, SELFPAY ==
--- NOTE | 2020-01-21 10:00 | CT_ITS ---
WS: [id number] CT LUMBAR SPINE TECHNIQUE: Noncontrast CT of the lumbar spine with coronal and sagittal reformatted images. CLINICAL INFORMATION: s/p lumbar fusion COMPARISON: CT November 19, 2019 DLP: 1886.[address] scans at [facility] use at least one of these dose optimization techniques: automat ed exposure control; mA and/or kV adjustment per patient size (includes targeted exams where dose is matched to clinical indication); or iterative reconstruction. FINDINGS: Prior postoperative changes L4-5 pedicle screw fixation with interconnecting rods. Laminectomy defect s. Grade 1 anterolisthesis L4 on L5 with vacuum disc phenomenon. L1-L2: Slight narrowing of the left subarticular recess with disc osteophytic ridging. Spinal canal a nd foramen are patent. Mild facet arthropathy. L2-L3: Mild disc bulging with narrowing of the left subarticular recess. Mild left and no significant right foraminal narrowing. Spinal canal is patent. Mild facet arthropathy. L3-L4: Mild left foraminal narrowing. Moderate central canal stenosis. Right foramen is patent. Moder ate facet arthropathy ligament flavum hypertrophy. L4-L5: Grade 1 anterolisthesis L4 on L5 with vacuum disc phenomenon. Laminectomy defects. Mild left a nd no significant right foraminal narrowing. Spinal canal is patent. L5-S1: Mild disc bulging with osteophytic ridging. Slight effacement of ventral thecal sac. Mild left and no significant right foraminal narrowing. Spinal canal is patent. Visualized pelvic bony structures: Normal. Paravertebral soft tissues: Normal. CT/CT lumbar spine wo con* [id number] IMPRESSION: 1. Postoperative changes pedicle screw fixation L4-5. No evidence of hardware loosening. Laminectomy defects with spinal canal decompression. 2. Stable grade 1 anterolisthesis L4 on L5 with disc space narrowing and vacuu m disc phenomenon. 3. No other significant changes from previous. 4. Moderate central canal stenosis L3-4 with mild left foraminal narrowing.
== END 2020-01-21 09:40 | disposition home or self-care (01) ==
LOC: RADWPI 09:41
PROVIDERS: Family Provider Internal Medicine; PCP Internal Medicine; Visit Provider Licensed Practical Nurse
DX: Z98.1 Arthrodesis status (principal); M43.26 Fusion of spine, lumbar region; M48.061 Spinal stenosis, lumbar region without neurogenic claudication
CPT/HCPCS: 72131

== ENCOUNTER 2020-04-22 09:55 | Outpatient (CLI) | payer MEDICARE, OTHER, SELFPAY ==
--- NOTE | 2020-04-22 10:00 | CT_ITS ---
WS: [id number] CT of the lumbar spine, additional two-dimensional coronal and sagittal imaging was obtained. 04/22/20 Clinical Data: s/p lumbar spinal fusion Comparison: CT lumbar spine, 01/21/2020 DLP: 1872.[address] scans at [facility] use at least one of these dose optimization techniques: automat ed exposure control; mA and/or kV adjustment per patient size (includes targeted exams where dose is matched to clinical indication); or iterative reconstruction. Findings: Bilateral pedicle screws at L4-L5 connected with rods remain unchanged. There are laminecto my defects at L4 and L5. There is a grade 1 spondylolisthesis of L4 on L5 with degenerating disc. The re is also disc narrowing at L5-S1. There is minimal osteoarthritis of the anterior lumbar vertebral bodies. No compression fractures are seen. T12-L1: No canal stenosis, disc bulge or foraminal narrowing is seen. L1-L2: No canal stenosis, disc bulge or foraminal narrowing is seen. Facet joint hypertrophy is prese nt. L2-L3: There is moderate central disc bulge with bilateral foraminal narrowing. Facet joint arthritis is present. L3-L4: There is central disc bulging with bilateral foraminal narrowing and facet joint arthritis. L4-L5: No canal stenosis, disc bulge or foraminal narrowing is seen. There is a laminectomy defect an d facet joint arthritis. L5-S1: There is minimal central disc bulging with mild bilateral foraminal narrowing. Facet joint art hritis and a laminectomy defect are noted. CT/CT lumbar spine wo con* [id number] Impression: 1. Pedicle screws at L4-L5 with L4 and L5 laminectomies unchanged. 2. Grade 1 anterolisthesis of L4 on L5 with disc space narrowing at this level and the L5-S1 level. 3. Multilevel disc bulging and foraminal narrowing unchanged.
== END 2020-04-22 09:56 | disposition home or self-care (01) ==
LOC: RADWPI 10:00
PROVIDERS: PCP Internal Medicine; Visit Provider Specialist
DX: M48.062 Spinal stenosis, lumbar region with neurogenic claudication (principal); Z98.1 Arthrodesis status
CPT/HCPCS: 72131; 99214

== ENCOUNTER → 2020-09-30 08:02 | Outpatient (BNVA) | payer MEDICARE, OTHER, SELFPAY | PROVIDERS: PCP Internal Medicine; Visit Provider Psychiatry & Neurology Neurology | DX: M51.17 Intervertebral disc disorders with radiculopathy, lumbosacral region (principal); G60.8 Other hereditary and idiopathic neuropathies | CPT/HCPCS: 95885; 95886; 95909 ==

== ENCOUNTER 2022-08-30 21:51 | Emergency (ER) | payer MEDICARE, SELFPAY ==
[2022-08-30 22:06] VITALS: BP 137/75; PULSE 86; RESP 16; TEMP 36.3; O2SAT 98
--- NOTE | 2022-08-30 23:13 | ED_ITS ---
HPI - Extremity Problem General: Chief complaint: Extremity Problem,Nontraumatic Stated complaint: BLE discoloration Time Seen by Provider: 08/30/22 23:11 History of Present Illness: 72-year-old female comes in today for concerns of mottling to her lower extremities. Patient appears nontoxic. Patient is alert and responding appropriately to questions. Patient had a hip replacement done 1 week ago. Patient was seen by her surgeon today who felt she was doing very well. Patient was at home this evening after being out most of the day noticed that she had some discoloration to her lower extremities and came into the ER for evaluation. Patient has a history of coronary artery disease, intervertebral disc disease, recent hip replacement. Patient denies any fever or significant pain. 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 Yayo Dougherty: L4-L5 laminectomy, pedicle screw-annette fixation, transverse process fusion S/P right rotator cuff repair Family History Sister Arthritis Scoliosis Father Cancer Social History Smoking and tobacco status: never smoked Alcohol intake: never Household members: spouse Marital status: service: No Current occupational status: retired and disabled Physical Exam Const: COMMON NORMALS: alert HENMT: COMMON NORMALS: normocephalic HEAD & SCALP: normocephalic THROAT: posterior oropharynx normal Neck/C-Spine: COMMON NORMALS: full ROM Resp: COMMON NORMALS: normal respiratory effort and clear to auscultation bilaterally AUSCULTATION: clear to auscultation bilaterally Cardio: COMMON NORMALS: regular rate and regular rhythm RATE: regular rate RHYTHM: regular rhythm GI: COMMON NORMALS: Soft to palpation and non-tender PALPATION: Yes Soft to palpation Extremity: NARRATIVE EXTREMITY EXAM: Bilateral lower extremities have mild mottling. Distal pulses are intact. Edema is noted to lower legs bilaterally worse on the right. Neuro: SENSORIUM/ORIENTATION: Yes alert Skin: COMMON NORMALS: turgor normal GENERAL SKIN EXAM: turgor normal Course Vital Signs: Vital signs: Vital Signs Temperature 97.3 F L 08/30/22 22:06 Pulse Rate 86 08/30/22 22:06 Respiratory Rate 16 08/30/22 22:06 Blood Pressure 137/75 08/30/22 22:06 Pulse Oximetry 98 08/30/22 22:06 Oxygen Delivery Me thod 08/30/22 22:06 MDM - Extremity (Nontraumatic) Medical Decision Making 72-year-old female comes in today for concerns of discoloration of bilateral lower legs. Patient recently had a hip replacement to the right hip about 1 week ago. Patient is alert and oriented. Patient appears nontoxic. On exam abdomen soft nontender. Patient moves all extremities well. Patient does have bilateral lower extremity swelling +1 pitting. Patient has some mild mottling to the knees bilaterally. Differential diagnosis includes but not limited to anemia, dehydration, bruising, peripheral vascular disease. No signs of DVT were noted. CBC noted some mild anemia with a hemoglobin of 9.4. CMP was noticed to have some creatinine at 1.4 which may be suggestive of some renal insufficiency versus mild dehydration. Patient was given a 500 mL back of IV fluids. Some improvement in perfusion was noted. Suspect may be patient's symptoms are secondary to mild dehydration. Discussed patient to talk with Dr. Wang regarding the furosemide whether or not he wants her to continue that or just use as a as needed basis. Patient does have some mild edema to bilateral ankles which may be due to dependent edema. Patient reported understanding and agreed to plan with need for follow-up or return to the ER. Lab Data 08/30/22 23:08/30/22 23: Laboratory Results WBC 11.3 10^3/uL (4.0-10.0) H 08/30/22: RBC 3.37 10^6/uL (4.1-5.3) L 08/30/22 23: Hgb 9.4 g/dL (11.5-15.3) L 08/30/22: Hct 31.1 % (37.0-47.0) L 08/30/22: MCV 92.3 fl (81-99) 08/30/22: MCH 27.9 pg (28.0-34.0) L 08/30/22: MCHC 30.2 g/dL (30.0-36.0) 08/30/22: RDW 16.3 % (12.1-15.1) H 08/30/22: Plt Count 359 10^3/cmm (130-400) 08/30/22: MPV 9.6 fL (7.4-10.4) 08/30/22: Neut % (Auto) 73.3 % 08/30/22: Lymph % (Auto) 14.3 % 08/30/22: [place] % (Auto) 7.7 % 08/30/22: Eos % (Auto) 3.8 % 08/30/22: Baso % (Auto) 0.5 % 08/30/22: Neut # (Auto) 8.25 10^3/uL (1.8-7.7) H 08/30/22: Lymph # (Auto) 1.6 10^3/uL (0.8-4.8) 08/30/22: Forest # (Auto) 0.9 10^3/uL (0.2-0.9) 08/30/22: Eos # (Auto) 0.4 10^3/uL (0.0-0.8) 08/30/22: Baso # (Auto) 0.1 10^3/uL (0.0-0.1) 08/30/22: Nucleated RBC % (auto) 0 % 03/14/23 23:33 Nucleated RBCs # 0.0 /100WBC 08/30/22 23:33 Sodium 142 mmol/L (136-145) 08/30/22 23:33 Potassium 4.3 mmol/L (3.5-5.1) 08/30/22 23:33 Chloride 103 mmol/L (98-107) 08/30/22 23:33 Carbon Dioxide 25 mmol/L (22-29) 08/30/22 23:33 Anion Gap 18.3 (5-19) 08/30/22 23:33 BUN 19 mg/dL (8-23) 08/30/22 23:33 Creatinine 1.4 mg/dL (0.5-0.9) H 08/30/22 23:33 GFR Calculation Not Reportable 08/30/22 23:33 Glucose 118 mg/dL (65-115) H 08/30/22 23:33 Calculated Osmolality 297 mOsm/kg (285-295) H 08/30/22 23:33 Calcium 8.6 mg/dL (8.5-10.5) 08/30/22 23:33 Total Bilirubin 0.9 mg/dL (0.15-1.2) 08/30/22 23:33 AST 22 U/L (0-32) 08/30/22 23:33 ALT 14 U/L (0-33) 08/30/22 23:33 Alkaline Phosphatase 126 U/L (35-105) H 08/30/22 23:33 Total Protein 6.6 g/dL (6.6-8.7) 08/30/22 23:33 Albumin 3.6 g/dL (3.5-5.2) 08/30/22 23:33 Globulin 3.0 g/dL (1.3-4.6) 08/30/22 23:33 Discharge Plan Discharge Patient Disposition: Home Clinical Impression: Dehydration, Renal insufficiency, Mild anemia Condition: Stable Prescriptions: No Action cyclobenzaprine 10 mg tablet 10 mg PO TID tramadol 50 mg tablet 100 mg PO Q8H Hold Instructions: Resume on 08/30/19. Hold while taking [place] (hydrocodone). naproxen 500 mg tablet 500 mg PO BID atorvastatin 20 mg tablet 20 mg PO DAILY levothyroxine [Synthroid] 112 mcg tablet 125 mcg PO DAILY hydrochlorothiazide 25 mg tablet 25 mg PO DAILY PRN (Reason: Edema) furosemide 20 mg tablet 20 mg PO DAILY sennosides-docusate sodium [Colace 2-In-1] 8.6-50 mg tablet 1 tab-cap PO DAILY brimonidine-timolol 0.2-0.5 % Drops 1 drp OPHTHALMIC (EYE) Q12H hydrocodone-acetaminophen 10-325 mg Tablet 1 - 2 tab PO Q4H MDD 5 tabs PRN (Reason: Moderate To Severe Pain) Qty: 30 0RF Rx Instructions: 1-2 po Q4H prn pain Discharge Orders: Discharge ED (Routine); Ordered 08/31/22 Ordered By: Mian Anaya Referrals: John Wang DO [Primary Care Provider] - Discharge Diet: Usual diet Discharge Activity: Increase activity as tolerated Patient Instructions: Opioid Safety Activity Restrictions/Additional Instructions: Home and rest. Elevate extremities. Follow-up with Dr. Wang in the morning. Discuss your use of furosemide and his recommendations on your continued use of the medication. Return to the emergency department for worsening symptoms such as chest pain, increased shortness of breath, fever greater than 100.4, or uncontrolled pain. Coding Level of Care Code ED Health Director for Ren[facility]
[2022-08-30 23:39] LABS: Basophils # 0.1 10^3/uL (0.0-0.1); Basophils % 0.5 %; Eosinophils # 0.4 10^3/uL (0.0-0.8); Eosinophils % 3.8 %; Hematocrit 31.1 % (37.0-47.0); Hemoglobin 9.4 g/dL (11.5-15.3); Lymphocytes # 1.6 10^3/uL (0.8-4.8); Lymphocytes % 14.3 %; Mean Corpuscular HGB Conc 30.2 g/dL (30.0-36.0); Mean Corpuscular Hemoglobin 27.9 pg (28.0-34.0); Mean Corpuscular Volume 92.3 fl (81-99); Mean Platelet Volume 9.6 fL (7.4-10.4); Monocytes # 0.9 10^3/uL (0.2-0.9); Monocytes % 7.7 %; Neutrophils # 8.25 10^3/uL (1.8-7.7); Neutrophils % 73.3 %; Nucleated Red Blood Cells % 0 %; Platelet Count 359 10^3/cmm (130-400); Red Blood Count 3.37 10^6/uL (4.1-5.3); Red Cell Distribution Width 16.3 % (12.1-15.1); White Blood Count 11.3 10^3/uL (4.0-10.0)
[2022-08-30 23:55] LABS: Alanine Aminotransferase 14 U/L (0-33); Albumin Level 3.6 g/dL (3.5-5.2); Alkaline Phosphatase 126 U/L (35-105); Anion Gap 18.3 (5-19); Aspartate Amino Transferase 22 U/L (0-32); Blood Urea Nitrogen 19 mg/dL (8-23); Calcium 8.6 mg/dL (8.5-10.5); Carbon Dioxide 25 mmol/L (22-29); Chloride 103 mmol/L (98-107); Glucose 118 mg/dL (65-115); Osmolality Calculated 297 mOsm/kg (285-295); Potassium 4.3 mmol/L (3.5-5.1); Sodium 142 mmol/L (136-145); Total Bilirubin 0.9 mg/dL (0.15-1.2); Total Protein 6.6 g/dL (6.6-8.7)
[2022-08-31] MEDS: sodium chloride 0.9% 500 ML 999 ML IV (00:09)
[2022-08-31 01:12] VITALS: BP 123/59; PULSE 88; RESP 18; O2SAT 99
== END 2022-08-31 01:10 | disposition home or self-care (01) ==
PROVIDERS: Emergency Provider Nurse Practitioner Family; PCP Internal Medicine
DX: E86.0 Dehydration (principal); D64.9 Anemia, unspecified; N28.9 Disorder of kidney and ureter, unspecified
CPT/HCPCS: 80053; 85025; 96360; 99284; J7040